=== PATIENT | female | born 1940 | race Caucasian/White ===

== ENCOUNTER → 2016-10-23 | Outpatient (CLI) | payer OTHER, MEDICARE ==
[~2016-10-23] MED LIST: ASPI-435 PO; ATEN-173 PO; CHOL20009 PO; CLX/20 PO; Levoxyl PO; MISCTAB30 PO; MULT-506 PO; OMEG100046 PO; PRLSR20 PO; SIMV10TA2 PO; TRIATAB3 PO; VITA400C15 PO
--- NOTE | 2016-10-23 16:43 | MAMMOGRAPHY REPORT ---
BILATERAL DIGITAL SCREENING MAMMOGRAM WITH CAD: 10/23/2016 CLINICAL HISTORY: Routine screening. Patient has no complaints. TECHNIQUE: Bilateral CC, MLO, repeat left MLO and right XCCL views were obtained. Current study was also evaluated with a Computer Aided Detection (CAD) system. COMPARISON: Comparison is made to exams dated: 10/20/2015 mammogram, 08/30/2014 mammogram, 08/27/2013 ma mmogram, 08/26/2012 mammogram, 05/28/2011 mammogram, and 02/03/2010 mammogram - [facility]. BREAST COMPOSITION: The tissue of both breasts is almost entirely fatty. FINDINGS: No suspicious mass, architectural distortion or cluster of microcalcifications is seen. IMPRESSION: ACR BI-RADS CATEGORY 1: NEGATIVE There is no mammographic evidence of malignancy. A 1 year screening mammogram is recommended. The pa tient will receive written notification of the results. Approximately 10% of breast cancers are not detected with mammography. A negative mammographic report should not delay biopsy if a clinically suggestive mass is present. Jeri Rivera M.D. ay/:10/23/2016 15:05:40 Rotary Filter Operator: Bernie AVINA(R)(Rich)(BD), [facility] letter sent: Normal 1/2 BI-RADS Code: ACR BI-RADS Category 1: Negative
== END | disposition home or self-care (01) ==
LOC: C.MAMM 13:16
PROVIDERS: ATTEND Family Medicine
DX: Z12.31 Encounter for screening mammogram for malignant neoplasm of breast (principal)

== ENCOUNTER 2022-04-17 08:21 | Observation (INO) ==
--- NOTE | 2022-03-08 15:12 | PAT Medication Instructions ---
Medication Instructions Date of Service March 08, 2022 Home Medications triamterene 37.5 mg-hydrochlorothiazide 25 mg tablet 0.5 tab PO QAM atorvastatin 20 mg tablet 20 mg PO HS escitalopram oxalate 10 mg tablet 10 mg PO HS levothyroxine 50 mcg tablet 50 mcg PO QAM metoprolol succinate 25 mg tablet,extended release 24 hr 25 mg PO HS DO NOT take the morning of surgery triamterene 37.5 mg-hydrochlorothiazide 25 mg tablet 0.5 tab PO QAM Take morning of surgery With a small sip of water, OTHERWISE NOTHING TO EAT OR DRINK AFTER MIDNIGHT: levothyroxine 50 mcg tablet 50 mcg PO QAM Take evening before surgery atorvastatin 20 mg tablet 20 mg PO HS escitalopram oxalate 10 mg tablet 10 mg PO HS metoprolol succinate 25 mg tablet,extended release 24 hr 25 mg PO HS Other Notes If you have any questions please call us at [phone] or [phone] or [phone] or [phone]
--- NOTE | 2022-03-12 15:25 | Anesthesiology Consultation ---
Date of Service March 12, 2022 Assessment & Plan (1) Encounter for pre-operative examination: - COVID screening: Per assessment on 03/12: No known COVID-19 positive contacts or current COVID-19 related symptoms. Travel screen negative. Patient vaccinated. At surgeon discretion if preop Covid testing being done. - Outpatient joint assessment: Pt currently scheduled for inpatient pathway. If surgeon requests review for outpatient joint pathway, patient is not recommended candidate for outpatient joint program from anesthesia standpoint. - New onset a. fib: Noted on preop EKG at PAT visit 03/12/22. Vitals stable. Patient asymptomatic. ER charge nurse made aware. Transported to ER without issue. No acute findings during ER workup. Pt advised to f/u with PCP regarding arranging cardiology evaluation. - PCP office visit (03/13/22): "Reviewed afib and meds and good prognosis.. Cardiology referral placed, and TTE.. Needs cardiology visit nick - has new onset afib and will need surgical clearance before Apr 17 preferably." Patient scheduled for preop Echo (03/15, [facility]) and cardiology evaluation (03/19, [facility])- awaiting report/note. Chart Review Chart Review: Patient seen in Pre Admission Testing Teaching & Discussion Pre-Anesthesia Teaching/Discussion Notes: Instructed NPO after midnight before surgery,except medications with 15 cc of water. Medication instructions provided according to the [facility] guidelines. History Surgery Operation Date: 04/17/22 12:45 Proposed Procedures p Right Total Hip Arthroplasty Anterior - Rafael Rodriguez, Height/Weight Height: 5 ft 5 in Weight: 86.7 kg Allergies Allergy/AdvReac Type Severity Reaction Status Date / Time prednisone AdvReac Unknown nervous/rapid Verified 03/08/22 13:13 heartrate Medications Home Medications Medication Instructions Recorded Confirmed Last Taken triamterene 37.5 0.5 tab PO QAM 11/11/19 03/08/22 12/06/19 mg-hydrochlorothiazide 25 mg tablet atorvastatin 20 mg tablet 20 mg PO HS 03/08/22 03/08/22 Unknown escitalopram oxalate 10 mg tablet 10 mg PO HS 03/08/22 03/08/22 Unknown levothyroxine 50 mcg tablet 50 mcg PO QAM 03/08/22 03/08/22 Unknown metoprolol succinate 25 mg 25 mg PO HS 03/08/22 03/08/22 Unknown tablet,extended release 24 hr apixaban 5 mg tablet (Eliquis) 5 mg PO Q12H #60 tabs 03/12/22 Unknown Past Medical History Medical History Acid reflux Chronic kidney disease Per records, pt denies Dyslipidemia Hx borderline History of seizures none since 1966 Hypertension Hypothyroidism IBS (irritable bowel syndrome) Osteoarthritis Prediabetes Borderline Rosacea hx Urge incontinence Exercise / Class Metabolic Activity III < 4 Walking/Shop/Light housework (one FS (no CP, mild SOB)) Past Surgical History Surgical History History of colonoscopy History of tubal ligation Hx of cataract extraction R/L Past Anesthesia History No Hx of Anesthesia Complications and No Family Hx of Anesthesia Complications History of PONV No Hx of PONV and Hx of Motion Sickness (Remote) Social History Smoking Status: Former smoker tobacco type: cigarettes Do You Dip or Chew Tobacco: No Smoking End Date: Quit 40 years ago Hx Alcohol Use: No Hx Substance Use: No substance use type: does not use Review of Systems Patient denies chest pain, shortness of breath, dyspnea on exertion, fever, chills, cough, wheezing, palpitations. Physical Exam Vital Signs VITALS BP 151/81 P 75 TEMP SP02 95%RA RESP 16 PHYSICAL Full cervical extension range of motion. Full TMJ range of motion. TMD 3 finger breaths Mallampati Score 3 Dentition: upper/lower full dentures Lungs: clear throughout to auscultation Cardiac: regular rate, irregular rhythm, no murmurs noted Spine: normal Carotid arteries: negative bruit Extremities: no edema Lab Results Anesthesia Preop Results Results Anesthesia Widget: WBC 8.40 K/ul (4.8-10.8) 03/12/22 Hgb 12.2 g/dl (12.0-16.0) 03/12/22 Hct 38.6 % (34.1-44.9) 03/12/22 Plt 267 K/uL (130-400) 03/12/22 Na 142 mmol/L (136-145) 03/12/22 K 3.7 mmol/L (3.5-5.1) 03/12/22 Cl 104 mmol/L (98-107) 03/12/22 CO2 29 mmol/L (21-32) 03/12/22 BUN 21 mg/dl (6-23) 03/12/22 Creat 0.81 mg/dl (0.6-1.2) 03/12/22 Glucose Level 95 mg/dl (70-99(Fasting)) 03/12/22 PT 10.5 Seconds (9.0-12.0) 03/12/22 PTT 24.2 Seconds (21.0-31.0) 03/12/22 INR 1.0 (0.9-1.1) 03/12/22 TSH 1.316 uIu/ml (0.300-4.500) 03/12/22 Urine Color Yellow 03/12/22 Urine Appearance Clear (Clear) 03/12/22 Urine pH 7.0 (4.5-7.5) 03/12/22 Urine Specific [place] 1.022 (1.000-1.030) 03/12/22 Urine Protein Negative (Negative) 03/12/22 Urine Glucose (UA) Negative (Negative) 03/12/22 Urine Ketones Trace (Negative) H 03/12/22 Urine Blood Negative (Negative) 03/12/22 Urine Nitrite Negative (Negative) 03/12/22 Urine Bilirubin Negative (Negative) 03/12/22 Urine Urobilinogen Negative (Negative) 03/12/22 Urine Leukocyte Esterase 1+ (Negative) H 03/12/22 Urine WBC (Auto) >30 /hpf (0-5) H 03/12/22 Urine RBC (Auto) 0-4 /hpf (0-4) 03/12/22 Urine Hyaline Casts (Auto) 1-5 /lpf (0-5) 03/12/22 Urine Epithelial Cells (Auto) 20-30 /lpf (0-5) H 03/12/22 Urine Bacteria (Auto) 1+ (Negative) H 03/12/22 Blood Type O Positive 03/12/22 Antibody Screen NEGATIVE 03/12/22 Testing Laboratory Results Surgeon's office made aware of abnormal UA* Electrocardiogram Date: 03/12/22 A. fib at 76bpm. Nonspecific STA. *Poor data quality. Chest X-Ray Date: 03/12/22 FINDINGS: Cardiac silhouette is moderately enlarged. Atherosclerosis of the aorta. No pneumothorax, large pleural effusion or lobar airspace consolidation. Degenerative changes of the shoulders and spine. IMPRESSION: Cardiomegaly without acute process. COVID-19 Risk Screen Screening Information COVID-19 Screen Date: 03/15/22 Exposure 21 Days Family/Household +COVID Last 21 Days: No Exposure 10 Days Any COVID Exposure Last 10 Days: No Symptoms Last 10 Days Experienced COVID Sx Last 10 Days: No + COVID 0-90 Days COVID + in Last 0-90 Days: No
--- NOTE | 2022-04-17 06:23 | History & Physical Report ---
Date of Service April 17, 2022 Assessment & Plan (1) Osteoarthritis of right hip: We will proceed with a right total hip arthroplasty. Postoperatively she will be started on aspirin for DVT prophylaxis and kept overnight in the hospital for postoperative medical management. She plans to use energy physical therapy upon discharge. History of Present Illness Chief Complaint: Osteoarthritis of the right hip. Primary Care Provider: Delia nAn MD Halie is a pleasant 81-year-old female who has been dealing with chronic worsening right hip and groin pain. X-rays and clinical examination have been diagnostic for advanced osteoarthritis of the right hip. After failing extensive conservative treatment, she has elected to proceed with a right total hip arthroplasty. . Allergies Allergy/AdvReac Type Severity Reaction Status Date / Time prednisone AdvReac Unknown nervous/rapid Verified 03/08/22 13:13 heartrate Home Medications Medication Instructions Recorded Confirmed Type triamterene 37.5 0.5 tab PO QAM 11/11/19 03/08/22 History mg-hydrochlorothiazide 25 mg tablet atorvastatin 20 mg tablet 20 mg PO HS 03/08/22 03/08/22 History escitalopram oxalate 10 mg tablet 10 mg PO HS 03/08/22 03/08/22 History levothyroxine 50 mcg tablet 50 mcg PO QAM 03/08/22 03/08/22 History metoprolol succinate 25 mg 25 mg PO HS 03/08/22 03/08/22 History tablet,extended release 24 hr apixaban 5 mg tablet (Eliquis) 5 mg PO Q12H #60 tabs 03/12/22 Rx Past Med/Surg History Medical History Acid reflux Chronic kidney disease Per records, pt denies Dyslipidemia Hx borderline History of seizures none since 1966 Hypertension Hypothyroidism IBS (irritable bowel syndrome) Osteoarthritis Prediabetes Borderline Rosacea hx Urge incontinence Surgical History History of colonoscopy History of tubal ligation Hx of cataract extraction R/L Social History Smoking Status: Former smoker Second Hand Exposure: Yes (at work); Hx Alcohol Use: No Hx Substance Use: No Preferred Language: Thai Communication Ability: Effective Visual Impairment: Limited Hearing Ability: Normal Hydraulic Boom Operator Required: No Beliefs That Will Affect Care: None marital status: Current Living Situation: Alone current occupational status: retired Feels Safe at Home: Yes Assistive Devices: Denture - Upper, Denture - Lower and Glasses Review of Systems All systems reviewed & are unremarkable except as noted in HPI & below. Physical Exam On physical examination the right hip, she has decreased range of motion. She has pain in her groin with forced internal and external rotation.. Constitutional WD/WN, vitals as above Eyes PERRL, conjunctivae normal, anicteric sclerae ENMT external ear and nose normal, oropharynx normal Neck trachea midline, no thyromegaly Respiratory normal respiratory effort, lungs clear to auscultation Cardiovascular RRR, no murmur, no edema Gastrointestinal (Abdomen) normal bowel sounds, soft, nontender, no hepatosplenomegaly Skin no rashes, warm and dry Psychiatric A+Ox3, euthymic affect Results & Data Results & Data Laboratory Results . Diagnostic Findings X-rays of the right hip show advanced osteoarthritis with joint space narrowing, osteophyte formation, and [id number] articulation.. PG Care Time/CCT Total # of Minutes Spent Total Time Spent with Patient: Total time spent is greater than 50% in coordination of care (as documented) at patient's floor/unit and/or counseling patient: Coding Level of Care Code None Diagnoses Osteoarthritis of right hip M16.11
[~2022-04-17 08:21] MED LIST changes: +ACETAMINOPHEN 500 MG TAB PO SCH; -ASPI-435 PO; -ATEN-173 PO; +BUPIVACAINE 0.5 % 5 MG/1 ML MPF 30ML VIAL ONE; -CHOL20009 PO; -CLX/20 PO; +FAMOTIDINE 20 MG TAB PO SCH; +GABAPENTIN 300 MG CAP PO SCH; +LR 500ML BOLUS, THEN 15ML/HR IV SCH; +LR 60ML/HR IV SCH; -Levoxyl PO; -MISCTAB30 PO; -MULT-506 PO; -OMEG100046 PO; +ORTHO JOINT MIX INFIL SCH; -PRLSR20 PO; -SIMV10TA2 PO; +TRANEXAMIC ACID 1,000 MG **IV Intra-op IV SCH; -TRIATAB3 PO; -VITA400C15 PO; +ceFAZolin 2000MG 2,000 MG/15 ML SYR IV SCH; +dexAMETHasone 4 MG TAB PO SCH
[2022-04-17] MEDS: TRANEXAMIC ACID 1,000 MG **IV Pre-op IV SCH ×2 (09:36→10:52)
[2022-04-17] MEDS ORDERED: PROPOFOL IV EMULSION 10 MG/ML 20 ML VIAL IV ONE (10:24)
[2022-04-17] MEDS ORDERED: LIDOCAINE 2% MPF LOCAL 5 ML VIAL INFIL ONE (10:24)
[2022-04-17] MEDS ORDERED: MIDAZOLAM HCL 1 MG/ML 2ML VIAL ONE (10:24)
[2022-04-17] MEDS ORDERED: ATROPINE SULFATE 0.1 MG/ML 10ML SYR IV PRN (10:47)
[2022-04-17] MEDS ORDERED: fentaNYL citrate 100 MCG/2 ML VIAL IV PRN (10:47)
[2022-04-17] MEDS ORDERED: ONDANSETRON INJ 2 MG/ML 2 ML VIAL IV PRN (10:47)
[2022-04-17] MEDS ORDERED: ePHEDrine sulfate 50 MG/ML AMP IV PRN (10:47)
[2022-04-17] MEDS ORDERED: HYDROmorphone INJ 2 MG/ML SYR/VIAL IV PRN (10:47)
[2022-04-17] MEDS ORDERED: ORTHO JOINT ANESTHETIC ONE (10:51)
[2022-04-17] MEDS ORDERED: fentaNYL citrate 100 MCG/2 ML VIAL ONE (11:05)
[2022-04-17] MEDS ORDERED: ROCURONIUM BROMIDE 10 MG/ML 5 ML VIAL IV ONE (11:05)
[2022-04-17] MEDS ORDERED: GLYCOPYRROLATE 0.2 MG/ML VIAL ONE (11:35)
[2022-04-17] MEDS ORDERED: NEOSTIGMINE METHYLSULFATE 1 MG/ML 10ML VIAL ONE (11:35)
[2022-04-17] MEDS ORDERED: DEXAMETHASONE SOD INJ 4 MG/ML VIAL ONE (11:35)
[2022-04-17] MEDS ORDERED: ONDANSETRON INJ 2 MG/ML 2 ML VIAL ONE (11:35)
[2022-04-17] MEDS ORDERED: PHENYLEPHRINE HCL 10 MG/ML VIAL ONE (12:28)
--- NOTE | 2022-04-17 12:31 | Operative Report ---
PG Post Operative Report Pre & Post Diagnosis Operation Date: 04/17/22 10:55 Pre-Op Diagnosis: Right Hip Degenerative Joint Disease Post-Op Diagnosis: Right Hip Degenerative Joint Disease I identified the patient and participated in the time-out.: Yes Procedure Operation Date: 04/17/22 10:55 Actual Procedures p Right Total Hip Arthroplasty Anterior(Right) - Rafael Rodriguez DO Surgeon Rafael Rodriguez DO Production Recorder Kamlesh Delgado PA-C Estimated Blood Loss 250 Findings Consistent with Post-Op Diagnosis Specimens Right femoral head Description of Procedure Implants used I used a ZimmerBiomet total hip arthroplasty system with a size 3 standard offset Avenir Complete stem, a 48 mm G7 cup with a 25mm screw, an E1 polye thylene liner, a 32 mm ceramic head with a +3.5 neck. Halie arrived at the hospital for the above procedure. She was seen in the preoperative holding area and the operative extremity was identified and signed. She was given a spinal anesthetic, a preoperative antibiotic, and TXA. She was then taken back to the operating room and laid on the table in the supine position. She was given basic sedation. The operative leg was secured to a Puristst leg positioner. The hip was then prepped and draped in sterile fashion. A timeout was done and the patient and the operative extremity was properly identified. An anterior approach was used. Dissection was taken down through the fascia and the tensor muscle belly was retracted laterally and the rectus was retracted medially. The circumflex vessels were identified and ligated. The capsule was then incised and tagged for later repair. The femoral neck was then cut and the femoral head was removed. The acetabulum was exposed. Time was spent doing a complete circumferential labral release. Sequential reaming of the acetabulum up to a size 47 reamer was done. Final reamings were done under fluoroscopy to ensure appropriate version. A Biomet 48 mm G7 cup was then impacted into place. A single 25 mm screw was placed. The E1 polyethylene liner was then snapped into place. Surrounding soft tissues were then injected with 100 cc of an orthopedic pain control cocktail. The proximal femur was then exposed. Sequential broaching up to a size 3 broach was done. Off that broach a size 32 head with a +3.5 neck was trialed. The hip was reduced and fluoroscopic images showed anatomic alignment of the implants in acceptable length. The broach was removed. The final size 3 standard offset Avenir Complete stem was then impacted into place. A ceramic 32 mm head with a +3.5 neck was then impacted onto the stem and the hip was reduced. Final fluoroscopic images showed anatomic alignment of the hip. The capsule was then closed with #1 Vicryl suture. A dilute betadyne lavage was then done for 3 minutes. The joint was then irrigated with normal saline solution. The fascia was closed with #1 PDS suture. Skin was closed with 2-0 Vicryl, brie, and a Silverlon dressing. She was then transferred to a hospital bed and taken to the post anesthesia care unit in stable condition. She tolerated the procedure well. Kamlesh Delgado PA-C, was present for the entire procedure. He was critical for patient positioning, prepping, draping, retraction exposure, wound closure and application of sterile dressing. I attest to the content of the Intraoperative Record and any orders documented therein. Any exceptions are noted below.
--- NOTE | 2022-04-17 14:02 | XRay Report ---
AP PELVIS, CROSSTABLE LATERAL RIGHT HIP History: Right total hip arthroplasty. Degenerative arthritis. Postop. FINDINGS: The patient is status post a right total hip arthroplasty. The hardware is intact. No fract ure or dislocation. Skin rbie are in place. IMPRESSION: Right total hip arthroplasty. No evidence for hardware complication ACT 112: Negative or not required by law. Electronically signed by: Trae Marie M.D. 04/17/2022 2:01 PM
--- NOTE | 2022-04-17 14:34 | Fluoroscopy Report ---
FL hip RT 1V CLINICAL HISTORY: RT ANTERIORright hip arthroplasty COMPARISON STUDY: Pelvis and hip radiographs of same day FLUOROSCOPY TIME: 16.4 seconds FLUOROSCOPY IMAGES: 1 EXPOSURE DOSE: 1.97 mGy FINDINGS: Satisfactory alignment of the right knee total joint arthroplasty. No acute fracture or une xpected opaque foreign body. Expected postoperative soft tissue swelling with deep tissue air. IMPRESSION: Fluoroscopic assistance as above. ACT 112: Negative or not required by law. Electronically signed by: Chinedu Brown M.D. 04/17/2022 2:33 PM
--- NOTE | 2022-04-17 14:49 | Anesthesiology Progress Note ---
Date of Service April 17, 2022 Anesthesia Post Procedure Vital Signs Vital Signs: Temp Pulse Pulse Resp BP Pulse Ox O2 Del Method 04/17/22 14:05 67 13 146/81 H 100 Nasal Cannula 04/17/22 13:50 36.9 C 67 13 123/68 96 Nasal Cannula 04/17/22 13:40 67 12 114/67 95 Nasal Cannula 04/17/22 13:30 66 19 122/72 100 Nasal Cannula 04/17/22 13:20 74 18 128/89 88 L Room Air 04/17/22 13:15 65 14 153/86 H 98 Oxymask 04/17/22 13:10 71 18 153/84 H 98 Oxymask 04/17/22 13:00 37.4 C 76 18 169/96 H 98 Oxymask 04/17/22 09:10 36.9 C 85 18 170/75 H 98 Room Air O2 Flow Rate 04/17/22 14:05 2 04/17/22 13:50 2 04/17/22 13:40 2 04/17/22 13:30 2 04/17/22 13:20 04/17/22 13:15 5 04/17/22 13:10 5 04/17/22 13:00 5 04/17/22 09:10 Pain Intensity Right Hip: Pain Intensity: 4 Transfer of Care Handoff Completed per policy Notes Mental Status: alert / awake / arousable and participated in evaluation Patient Amnestic to Procedure: Yes Nausea / Vomiting: adequately controlled Pain: adequately controlled Airway Patency, RR, SpO2: stable & adequate BP & HR: stable & adequate Hydration State: stable & adequate Anesthetic Complications: no major complications apparent and Pt Satisfied with anesthetic care
[2022-04-17] MEDS ORDERED: HYDROmorphone INJ 0.5 MG/0.5 ML SYR IV PRN (14:53)
[2022-04-17] MEDS ORDERED: MAGNESIUM HYDROXIDE SUSP 30 ML UDC PO PRN (14:53)
[2022-04-17] MEDS ORDERED: NALOXONE HCL 0.4 MG/1 ML VIAL/CARP IV PRN (14:53)
[2022-04-17] MEDS ORDERED: METOCLOPRAMIDE HCL INJ 5 MG/ML 2 ML VIAL IV PRN (14:53)
[2022-04-17] MEDS ORDERED: SODIUM CHLORIDE 0.9% 1000ML 1,000 ML IV SCH (14:53)
[2022-04-17] MEDS ORDERED: bisacodyL 10 MG SUPP PR PRN (14:53)
[2022-04-17] MEDS: oxyCODONE HCL IR 5 MG TAB (IMMEDIATE RELEASE) PO PRN ×2 (15:31→21:18)
[2022-04-17] MEDS: KETOROLAC TROMETHAMINE 15 MG/ML VIAL IV SCH ×2 (15:31→21:19)
[2022-04-17] MEDS: ceFAZolin 2000MG 2,000 MG/15 ML SYR IV SCH (17:39)
[2022-04-17] MEDS: DOCUSATE SODIUM 100 MG CAP PO SCH (20:22)
[2022-04-17] MEDS ORDERED: SENNA 8.6 MG TAB PO SCH (21:00)
[2022-04-17] MEDS ORDERED: METOPROLOL SUCC 25MG EXT REL TAB PO SCH (21:00)
[2022-04-17] MEDS ORDERED: ATORVASTATIN 20 MG TAB PO SCH (21:00)
[2022-04-17] MEDS ORDERED: ESCITALOPRAM OXALATE 10 MG TAB PO SCH (21:00)
[2022-04-18] MEDS: ceFAZolin 2000MG 2,000 MG/15 ML SYR IV SCH (00:39)
[2022-04-18] MEDS: oxyCODONE HCL IR 5 MG TAB (IMMEDIATE RELEASE) PO PRN (03:58)
[2022-04-18] MEDS: KETOROLAC TROMETHAMINE 15 MG/ML VIAL IV SCH ×2 (03:58→10:23)
[2022-04-18] MEDS ORDERED: LEVOTHYROXINE SODIUM 50 MCG TABLET PO SCH (06:30)
--- NOTE | 2022-04-18 06:49 | Orthopedic Progress Note ---
Date of Service April 18, 2022 Assessment & Plan (1) Status post right hip replacement: Overall she is doing very well. She is not having much pain in the right hip. She will be seen by physical therapy today for ambulation and range of motion exercises. She is on Eliquis for DVT prophylaxis. She can be discharged home later today. She will follow-up with orthopedics in 2 weeks. Subjective Halie was seen and examined at bedside this morning. Overall she is doing very well. She is not having much pain in her right hip. She has been up and ambulating to the bathroom. She has no complaints.. Review of Systems All systems reviewed & are unremarkable except as noted in HPI & below. Physical Exam On physical examination of the right hip, the dressing is clean and dry. She has active dorsiflexion plantarflexion of her right ankle.. Results & Data Results & Data Laboratory Results . Diagnostic Findings Postoperative x-rays of the right hip show the prosthesis to be in anatomic alignment without any evidence of fracture, desiccation, or loosening.. PG Care Time/CCT Total # of Minutes Spent Total Time Spent with Patient: Total time spent is greater than 50% in coordination of care (as documented) at patient's floor/unit and/or counseling patient: Coding Level of Care Code 92810 Post Operative Follow-Up Diagnoses Status post right hip replacement Z96.641
--- NOTE | 2022-04-18 06:51 | Discharge Summary ---
Date of Service April 18, 2022 Admission HPI (Per Admitting) Halie is a pleasant 81-year-old female who has been dealing with chronic worsening right hip and groin pain. X-rays and clinical examination have been diagnostic for advanced osteoarthritis of the right hip. After failing extensive conservative treatment, she has elected to proceed with a right total hip arthroplasty. . Admission Exam (Per Admitting) On physical examination the right hip, she has decreased range of motion. She has pain in her groin with forced internal and external rotation.. Principal Diagnosis Same as "Discharge Diagnosis" noted below under Discharge Instructions. Discharge Exam On physical examination of the right hip, the dressing is clean and dry. She has active dorsiflexion plantarflexion of her right ankle.. Discharge Data Procedures Performed Operation Date: 04/17/22 10:55 Actual Procedures p Right Total Hip Arthroplasty Anterior(Right) - Rafael Rodriguez DO Ordered Studies 04/17/22 10:55 FL hip RT 1V Routine Hospital Course (1) Status post right hip replacement: On April 17, 2022 Halie arrived at [facility] and underwent a right hip replacement without complication. She had a general anesthetic. Postoperatively she was started on Eliquis for DVT prophylaxis and transferred to the general orthopedic floors. Her hospital course was uneventful. On postop day #1, her vital signs were stable and her pain was well controlled. She was able to participate well with physical therapy doing ambulation and range of motion exercises. She was then discharged home. She will follow-up with orthopedics in 2 weeks. PG Care Time/CCT Total # of Minutes Spent Total Time Spent with Patient: Total time spent is greater than 50% in coordination of care (as documented) at patient's floor/unit and/or counseling patient: Discharge Plan Discharge Items Patient Disposition: Home - Home Health Services Reason For Visit: POST SURGICAL CARE Discharge Diagnosis: Right hip replacement Activity: As commented below Non-emergency contact: Surgeon Call non-emergency contact if: your wound has increased redness and your wound has increased drainage Follow-up/Referrals: Delia Ann MD [Primary Care Provider] - Diet: Regular Addtl Attending Provider Instructions: Activity and Therapy Recommendations: * If you are using [facility] then therapy will be provided at your home until they feel you have accomplished all of your goals. * If you are using [facility] then Physical Therapy will be provided until they feel you are ready to start Outpatient Physical Therapy. * If you are not using home therapy then Outpatient Physical Therapy should start about 3-5 days from your day of surgery. Therapy will last about 6-10 weeks * You were shown a series of exercises in the hospital. Do these exercises three times each day including the exercises you were shown in physical therapy. * Get up and walk several times each day.~ For the first four weeks, try not to stand or walk for more than one hour at a time. If you do stand or walk for more than one hour, you will not hurt anything, but your leg will likely swell.~~ * As you feel comfortable, you may change from the walker or crutches to a cane and~then to independent walking. Medications: * Narcotic You will likely be sent home from the hospital with a prescription for the narcotic pain medication that worked best throughout your stay. * Continue taking Eliquis as prescribed. * Other medications may be prescribed for specific circumstances. If you have any questions, please call the office at . * Resume previous home medications unless otherwise instructed TEDs/Elastic Stockings: The white elastic stockings help limit swelling and prevent blood clots from forming in your legs. The more you wear them, the more they work. Wear them for six weeks. Dressing Care: Leave the Silverlon dressing in place for 7 days. After 7 days you may remove the dressing. If the incision is not draining then you may leave the brie open to air. If there is a little bit of drainage or if the brie are getting stuck on your clothing then cover the incision with a dry dressing. The brie will be removed at your 2 week follow-up appointment. Showering: You may shower with the Silverlon dressing in place. Do not let the shower spray hit the dressing directly. Pat the Silverlon dressing dry. If the dressing becomes wet underneath, then simply remove the dressing. Keep the incision dry until you are 7 days out from the day of surgery. After 7 days you may remove the Silverlon dressing and shower with the brie exposed. Let soapy water run over the brie and pat them dry. Do not scrub or soak the incision. Things To Watch For: * Drainage from the incision site that occurs more than one week after your surgery. * Increased redness at the incision site. * Fever above 102 degrees Fahrenheit. * Unusual chest pain or shortness of breath. * Call [facility] at with any of the above problems Follow-Up Visit: Follow-up with Dr. Rodriguez's PA (Rafael Manriquez) 2-3 weeks after your day of surgery. He will remove your brie and answer any questions. If you have any additional questions or concerns, Dr Rodriguez is usually in the office at the same time and will be available An appointment was probably scheduled when you signed-up for surgery in the office. If you have any questions call Office Instructions: More detailed instructions as well as Frequently Asked Questions were provided in a folder by our office when you signed-up for surgery. Please review these instructions when you get home. If you have any further questions or concerns, please feel free to call the office at [phone] Pending Studies at Discharge: No Stand-Alone Forms: My [facility] Medications and DC Order Prescriptions: New oxycodone-acetaminophen 5-325 mg tablet 1 tab PO Q6H PRN (Reason: pain) Qty: 30 0RF Continued triamterene-hydrochlorothiazid 37.5-25 mg Tablet 0.5 tab PO QAM atorvastatin 20 mg tablet 20 mg PO HS levothyroxine 50 mcg tablet 50 mcg PO QAM metoprolol succinate 25 mg tablet extended release 24 hr 25 mg PO HS escitalopram oxalate 10 mg tablet 10 mg PO HS Eliquis 5 mg tablet 5 mg PO Q12H Qty: 60 0RF Admission Data Admit Date/Time: 04/17/22 10:56 Attending Provider: Rafael Rodriguez Admit Provider: Rafael Rodriguez Primary Care Provider: Delia Ann
[2022-04-18] MEDS ORDERED: dexAMETHasone 4 MG TAB PO SCH (08:00)
[2022-04-18] MEDS: DOCUSATE SODIUM 100 MG CAP PO SCH (08:28)
[2022-04-18] MEDS ORDERED: TRIAMTERENE/HCTZ 37.5/25MG TAB PO SCH (09:00)
[2022-04-18] MEDS ORDERED: MULTIVITAMIN TAB PO SCH (09:00)
[2022-04-18] MEDS ORDERED: APIXABAN 5 MG TABLET PO SCH (09:00)
== END 2022-04-18 13:46 | disposition home health service (06) ==
LOC: PACUINP 08:21 → ASU 08:21 → 3W 15:06

== ENCOUNTER 2022-08-17 07:57 | Observation (INO) ==
--- NOTE | 2022-07-18 10:06 | PAT Medication Instructions ---
Medication Instructions Date of Service July 18, 2022 Home Medications Medication Instructions Recorded apixaban 5 mg tablet (Eliquis) 5 mg PO Q12H #60 tabs 03/12/22 triamterene 37.5 mg-hydrochlorothiazide 25 mg tablet 0.5 tab PO QAM atorvastatin 20 mg tablet 20 mg PO HS escitalopram oxalate 10 mg tablet 10 mg PO HS levothyroxine 50 mcg tablet 50 mcg PO QAM metoprolol succinate 25 mg tablet,extended release 24 hr 25 mg PO HS apixaban 5 mg tablet (Eliquis) 5 mg PO Q12H ASK your prescriber and surgeon apixaban 5 mg tablet (Eliquis) 5 mg PO Q12H (in order to get spinal anesthesia- will need to hold Eliquis/apixaban at least 72 hours prior to surgery) DO NOT take the morning of surgery triamterene 37.5 mg-hydrochlorothiazide 25 mg tablet 0.5 tab PO QAM Take morning of surgery With a small sip of water, OTHERWISE NOTHING TO EAT OR DRINK AFTER MIDNIGHT: levothyroxine 50 mcg tablet 50 mcg PO QAM Take evening before surgery atorvastatin 20 mg tablet 20 mg PO HS escitalopram oxalate 10 mg tablet 10 mg PO HS metoprolol succinate 25 mg tablet,extended release 24 hr 25 mg PO HS Other Notes If you have any questions please call us at [phone] or [phone] or [phone] or [phone]
--- NOTE | 2022-07-24 14:33 | Anesthesiology Consultation ---
Date of Service July 24, 2022 Assessment & Plan (1) Encounter for pre-operative examination: - COVID screening: Per assessment on 07/24: No known COVID-19 positive contacts or current COVID-19 related symptoms. Travel screen negative. Patient vaccinated. At surgeon discretion if preop Covid testing being done. -Cardiology office visit (03/23/22): "Newly observed atrial fibrillation, March 12, 2022.. controlled ventricular response rate due to chronic use of metoprolol. Patient asymptomatic and unaware of arrhythmias. No signs of tachy or starla arrhythmias. No symptomatic indications for need to return to sinus rhythm at this time. Appropriately anticoagulated with Eliquis with chads Vasc 2 score of 4. Echocardiogram reflects normal LV systolic function..No cardiac contraindications to surgery as planned. Will need to hold Eliquis 3 days prior to procedurewith resumption depending on anesthesia/surgery course" - S/P Right GILA, anterior (04/17/22): Multiple attempts at multiple levels for SAB unsuccessful > GA- Grade view 1, MAC#3, ETT 7.0 at [facility] - Outpatient joint assessment: Pt currently scheduled for inpatient pathway. If surgeon requests review for outpatient joint pathway, patient is not recommended candidate for outpatient joint program from anesthesia standpoint. - Patient scheduled to see cardiology prior to surgery. Awaiting upcoming cardiology office visit note (NITIN Hendrickson, appt 07/31). Patient otherwise acceptable risk for surgery. Chart Review Chart Review: Patient seen in Pre Admission Testing Teaching & Discussion Pre-Anesthesia Teaching/Discussion Notes: Instructed NPO after midnight before surgery,except medications with 15 cc of water. Medication instructions provided according to the PAT guidelines. History Surgery Operation Date: 08/17/22 10:30 Proposed Procedures p Left Total Knee Arthroplasty - Rafael Rodriguez, Height/Weight Height: 5 ft 5 in Weight: 83 kg Allergies Allergy/AdvReac Type Severity Reaction Status Date / Time prednisone AdvReac Unknown Nervous, Verified 07/23/22 11:48 rapid heart rate Medications Home Medications Medication Instructions Recorded Confirmed Last Taken triamterene 37.5 0.5 tab PO QAM 11/11/19 07/17/22 04/15/22 12:00 mg-hydrochlorothiazide 25 mg tablet atorvastatin 20 mg tablet 20 mg PO HS 03/08/22 07/17/22 04/14/22 22:00 escitalopram oxalate 10 mg tablet 10 mg PO HS 03/08/22 07/17/22 04/14/22 22:00 levothyroxine 50 mcg tablet 50 mcg PO QAM 03/08/22 07/17/22 04/15/22 12:00 metoprolol succinate 25 mg 25 mg PO HS 03/08/22 07/17/22 04/14/22 22:00 tablet,extended release 24 hr apixaban 5 mg tablet (Eliquis) 5 mg PO Q12H #60 tabs 03/12/22 07/17/22 04/13/22 12:00 Past Medical History Medical History Acid reflux Atrial fibrillation Dx 02/2022 Follows with [facility] [place] [facility] Chronic kidney disease Per records, pt denies Dyslipidemia Hx borderline History of cellulitis Right hip incision s/p right hip arthroplasty (April 2022) > resolved s/p antibiotics History of seizures none since 1966 Hypertension Hypothyroidism IBS (irritable bowel syndrome) Osteoarthritis Prediabetes Borderline Rosacea Hx Urge incontinence Exercise / Class Metabolic Activity III < 4 Walking/Shop/Light housework Past Family History Family History Other No family history of adverse response to anesthesia Past Surgical History Surgical History History of anesthesia reaction Right GILA, anterior (04/17/22): Multiple attempts at multiple levels for SAB unsuccessful > GA- Grade view 1, MAC#3, ETT 7.0 at [facility] History of colonoscopy History of tubal ligation Hx of cataract extraction R/L S/P total right hip arthroplasty Past Anesthesia History No Family Hx of Anesthesia Complications and Other (Right GILA, anterior (04/17/22): Multiple attempts at multiple levels for SAB unsuccessful > GA- Grade view 1, MAC#3, ETT 7.0 at [facility]) History of PONV No Hx of PONV and No Hx of Motion Sickness Social History Smoking Status: Former smoker tobacco type: cigarettes Do You Dip or Chew Tobacco: No Smoking End Date: Quit 40 years ago Hx Alcohol Use: No Hx Substance Use: No substance use type: does not use Review of Systems Patient denies chest pain, shortness of breath, fever, chills, cough, wheezing, palpitations. Physical Exam Vital Signs VITALS BP 125/70 P 73 TEMP 98.3 SP02 96%RA RESP 16 PHYSICAL Full cervical extension range of motion. Full TMJ range of motion. TMD 3 finger breaths Mallampati Score 1 Dentition: upper/lower full dentures Lungs: clear throughout to auscultation Cardiac: regular rate, irregular rhythm, no murmurs noted Spine: normal Carotid arteries: negative bruit Extremities: no LE edema Lab Results Anesthesia Preop Results Results Anesthesia Widget: WBC 5.78 K/ul (4.8-10.8) 07/24/22 Hgb 11.3 g/dl (12.0-16.0) L 07/24/22 Hct 36.4 % (37.0-47.0) L 07/24/22 Plt 281 K/uL (130-400) 07/24/22 Na 140 mmol/L (136-145) 07/24/22 K 3.8 mmol/L (3.5-5.1) 07/24/22 Cl 103 mmol/L (98-107) 07/24/22 CO2 30 mmol/L (21-32) 07/24/22 BUN 26 mg/dl (6-23) H 07/24/22 Creat 0.78 mg/dl (0.6-1.2) 07/24/22 Glucose Level 103 mg/dl (70-99(Fasting)) H 07/24/22 PT 11.2 Seconds (9.0-12.0) 07/24/22 PTT 25.6 Seconds (21.0-31.0) 07/24/22 INR 1.0 (0.9-1.1) 07/24/22 Blood Type O Positive 07/24/22 Antibody Screen NEGATIVE 07/24/22 Testing Electrocardiogram Date: 03/23/22 A. fib at 70bpm. Low voltage QRS, consider pulmonary disease, pericardial effusion or normal variant. NS ST/TWA. Chest X-Ray Date: 03/12/22 FINDINGS: Cardiac silhouette is moderately enlarged. Atherosclerosis of the aorta. No pneumothorax, large pleural effusion or lobar airspace consolidation. Degenerative changes of the shoulders and spine. IMPRESSION: Cardiomegaly without acute process. Echocardiogram Date: 03/15/22 LVEF 55-59%. Mildly increased cLV wall thickness. Mild AV calcification. Mild MV annulus dilation. Moderate MR. No RWMA. COVID-19 Risk Screen Screening Information COVID-19 Screen Date: 07/24/22 Exposure 21 Days Family/Household +COVID Last 21 Days: No Exposure 10 Days Any COVID Exposure Last 10 Days: No Symptoms Last 10 Days Experienced COVID Sx Last 10 Days: No + COVID 0-90 Days COVID + in Last 0-90 Days: No
[~2022-08-17 07:57] MED LIST changes: -BUPIVACAINE 0.5 % 5 MG/1 ML MPF 30ML VIAL ONE; +BUPIVACAINE 0.5 % 5 MG/1 ML PF 10ML VIAL ONE; +Ketorolac (*for OR use only*) 30 MG, dexAMETHasone 4 MG, KETAMINE HCL (**OR use only) 1... INFIL SCH; -ORTHO JOINT MIX INFIL SCH; +ROPIVACAINE 0.5% 5 MG/ML 30 ML VIAL ONE; +TRANEXAMIC ACID 1,000 MG **IV Pre-op IV SCH
[2022-08-17] MEDS ORDERED: PROPOFOL IV EMULSION 10 MG/ML 20 ML VIAL IV ONE (08:13)
[2022-08-17] MEDS ORDERED: fentaNYL citrate PF 100 MCG/2 ML VIAL ONE ×2 (08:29→10:43)
[2022-08-17] MEDS ORDERED: MIDAZOLAM HCL 1 MG/ML 2ML VIAL ONE (08:29)
--- NOTE | 2022-08-17 09:25 | History & Physical Bridge Note ---
Date of Service August 17, 2022 History & Physical Bridge Note I have examined the patient, reviewed the History & Physical and in the interval since the performance of the History & Physical I have noted the following changes of clinical significance: no changes noted
[2022-08-17] MEDS ORDERED: LIDOCAINE 2% 2 ML VIAL/AMP(20MG/ML) INFIL ONE (09:34)
[2022-08-17] MEDS ORDERED: ONDANSETRON INJ 2 MG/ML 2 ML VIAL IV PRN ×2 (09:52→13:41)
[2022-08-17] MEDS ORDERED: ePHEDrine sulfate 50 MG/ML AMP IV PRN (09:52)
[2022-08-17] MEDS ORDERED: ORTHO JOINT ANESTHETIC ONE (09:52)
[2022-08-17] MEDS ORDERED: fentaNYL citrate PF 100 MCG/2 ML VIAL IV PRN (09:52)
[2022-08-17] MEDS ORDERED: ATROPINE SULFATE 0.1 MG/ML 10ML SYR IV PRN (09:52)
[2022-08-17] MEDS ORDERED: DEXAMETHASONE SOD INJ 4 MG/ML VIAL ONE (09:54)
[2022-08-17] MEDS ORDERED: ONDANSETRON INJ 2 MG/ML 2 ML VIAL ONE (09:54)
--- NOTE | 2022-08-17 11:37 | Operative Report ---
PG Post Operative Report Pre & Post Diagnosis Operation Date: 08/17/22 10:00 Pre-Op Diagnosis: DJD Left Knee Post-Op Diagnosis: DJD Left Knee I identified the patient and participated in the time-out.: Yes Procedure Operation Date: 08/17/22 10:00 Actual Procedures p Left Total Knee Arthroplasty(Left) - Rafael Rodriguez DO Surgeon Rafael Rodriguez DO House Player Rafael Manriquez PA-C Estimated Blood Loss 30 Findings Consistent with Post-Op Diagnosis Specimens Left femoral tibial bone Description of Procedure Implants used: I used a Jenifer Persona total knee arthroplasty system with a size 6 standard PS femur, D tibia with a 30 mm stem extension, 31 oval patella, and a size 12 CPS polyethylene bearing. All components were cemented in place with Biomet cement. Halie arrived [facility] for the above procedure. She was seen in the preoperative holding area and the operative extremity was identified and signed. She was given a preoperative antibiotic, TXA, a spinal anesthetic and an adductor nerve block. She was taken back to the operating room and laid on the table in supine position. She was given basic sedation. The operative knee was then prepped and draped in sterile fashion. A timeout was done, and the patient and the operative extremity was properly identified. A midline incision was made directly over the patella. Dissection was taken down to the extensor mechanism. A midvastus arthrotomy was used. The medial retinaculum was released and the fat pad was mostly excised. The knee was flexed and the ACL, PCL, and meniscus were removed. A drill was sent down the center of the femoral canal followed by an intramedullary yamini. Off that yamini a distal femoral cutting block was placed. 9 mm was resected off the distal femur at 5 of valgus. A posterior referencing AP sizing guide was then placed on the distal femur. The femur measured to be a size 6. 2 drill holes were placed in 3 of external rotation. A 4-in-1 cutting block was then impacted into place. Anterior, posterior, and chamfer cuts were then made. The proximal tibia was then exposed. An external tibial alignment guide was placed. A tibial cut guide was then anchored in place and the proximal tibia was then resected. The posterior aspect of the knee was then opened up and any additional meniscus fragments and osteophytes were removed. The tibia measured to be a size D. The tibial plate was then placed in the appropriate rotation and the tibia was drilled and punched. Trial components were then placed. I used a size 12 CPS polyethylene insert. The knee was brought through a full range of motion and felt to be stable. The peg holes for the femoral component were then drilled. The patella was then everted and 9 mm was resected off the posterior aspect of the patella. The patella measured to be a size 31 oval. 3 peg holes were then drilled. A trial patella was placed. The knee was once again brought through a full range of motion and felt to be stable. Trial components were then removed. The surrounding soft tissues were injected with 100 cc of an orthopedic pain control cocktail. All components were then cemented into place with Biomet cement. The final polyethylene insert was then snapped into place. Once cement was dry the tourniquet was deflated. Hemostas is was obtained. A dilute betadyne lavage was then done for 3 minutes. The joint was then irrigated with normal saline solution. The midvastus arthrotomy was then closed with #1 Vicryl suture. The skin was closed with 2-0 Vicryl, 3- 0V lock suture, and brie. A soft compressive dressing was placed. She was then transferred to a hospital bed and taken to the postanesthesia care unit in stable condition. She tolerated the procedure well. Rafael Manriquez PA-C, was present for the entire procedure. He was critical for patient positioning, prepping, draping, retraction exposure, wound closure and application of sterile dressing. I attest to the content of the Intraoperative Record and any orders documented therein. Any exceptions are noted below.
--- NOTE | 2022-08-17 12:24 | XRay Report ---
XR knee LT 1 or 2V routine CLINICAL HISTORY: Surgical Post Op TECHNIQUE: 2 views of the left knee were obtained. Comparison: Comparison is made to knee radiographs 08/03/2022 FINDINGS: Patient is status post total knee arthroplasty with expected postsurgical changes including soft tiss ue swelling and subcutaneous emphysema. No periarticular lucency or hardware fracture is seen. IMPRESSION: No evidence of acute osseous injury. ACT 112: Negative or not required by law. Electronically signed by: Tuan Clay M.D. 08/17/2022 12:22 PM
--- NOTE | 2022-08-17 12:42 | Anesthesiology Progress Note ---
Date of Service August 17, 2022 Anesthesia Post Procedure Vital Signs Vital Signs: Temp Pulse Pulse Resp BP BP Pulse Ox 08/17/22 12:40 68 14 145/74 H 96 08/17/22 12:30 97.5 F L 68 18 123/70 94 08/17/22 12:20 64 14 141/68 H 95 08/17/22 12:10 77 17 134/65 96 08/17/22 12:00 97.9 F 67 13 137/73 94 08/17/22 08:32 98.2 F 69 18 160/93 H 97 O2 Del Method O2 Flow Rate 08/17/22 12:40 Nasal Cannula 2 08/17/22 12:30 Oxymask 2 08/17/22 12:20 Oxymask 4 08/17/22 12:10 Oxymask 6 08/17/22 12:00 Oxymask 6 08/17/22 08:32 Room Air Pain Intensity Left Knee: Pain Intensity: 5 Transfer of Care Handoff Completed per policy Notes Mental Status: alert / awake / arousable and participated in evaluation Patient Amnestic to Procedure: Yes Nausea / Vomiting: adequately controlled Pain: adequately controlled Airway Patency, RR, SpO2: stable & adequate BP & HR: stable & adequate Hydration State: stable & adequate Anesthetic Complications: no major complications apparent and Pt Satisfied with anesthetic care
[2022-08-17] MEDS ORDERED: METOCLOPRAMIDE HCL INJ 5 MG/ML 2 ML VIAL IV PRN (13:41)
[2022-08-17] MEDS ORDERED: HYDROmorphone INJ 0.5 MG/0.5 ML SYR IV PRN (13:41)
[2022-08-17] MEDS ORDERED: MAGNESIUM HYDROXIDE SUSP 30 ML UDC PO PRN (13:41)
[2022-08-17] MEDS ORDERED: bisacodyL 10 MG SUPP PR PRN (13:41)
[2022-08-17] MEDS ORDERED: NALOXONE HCL 0.4 MG/1 ML VIAL/CARP IV PRN (13:41)
[2022-08-17] MEDS: KETOROLAC TROMETHAMINE 15 MG/ML VIAL IV SCH ×3 (14:12→23:59)
[2022-08-17] MEDS: ACETAMINOPHEN 500 MG TAB PO SCH ×2 (15:20→21:19)
[2022-08-17] MEDS: SODIUM CHLORIDE 0.9% 1000ML 1,000 ML IV SCH (15:21)
[2022-08-17] MEDS: oxyCODONE HCL IR 5 MG TAB (IMMEDIATE RELEASE) PO PRN (16:52)
[2022-08-17] MEDS: ceFAZolin 2000MG 2,000 MG/15 ML SYR IV SCH (18:04)
[2022-08-17] MEDS ORDERED: ATORVASTATIN 20 MG TAB PO SCH (21:00)
[2022-08-17] MEDS ORDERED: SENNA 8.6 MG TAB PO SCH (21:00)
[2022-08-17] MEDS ORDERED: METOPROLOL SUCC 25MG EXT REL TAB PO SCH (21:00)
[2022-08-17] MEDS ORDERED: ESCITALOPRAM OXALATE 10 MG TAB PO SCH (21:00)
[2022-08-17] MEDS: ASPIRIN 81 MG ECTAB PO SCH (21:16)
[2022-08-17] MEDS: DOCUSATE SODIUM 100 MG CAP PO SCH (21:17)
[2022-08-18] MEDS: ceFAZolin 2000MG 2,000 MG/15 ML SYR IV SCH (01:25)
[2022-08-18] MEDS: SODIUM CHLORIDE 0.9% 1000ML 1,000 ML IV SCH (02:27)
[2022-08-18] MEDS: KETOROLAC TROMETHAMINE 15 MG/ML VIAL IV SCH ×2 (05:19→11:18)
[2022-08-18] MEDS: ACETAMINOPHEN 500 MG TAB PO SCH (05:20)
[2022-08-18] MEDS: oxyCODONE HCL IR 5 MG TAB (IMMEDIATE RELEASE) PO PRN ×2 (05:29→11:18)
[2022-08-18] MEDS ORDERED: LEVOTHYROXINE SODIUM 50 MCG TABLET PO SCH (06:30)
[2022-08-18] MEDS ORDERED: dexAMETHasone 4 MG TAB PO SCH (08:00)
[2022-08-18] MEDS ORDERED: APIXABAN 5 MG TABLET PO SCH (08:00)
[2022-08-18] MEDS: ASPIRIN 81 MG ECTAB PO SCH ×2 (08:57→09:03)
[2022-08-18] MEDS: DOCUSATE SODIUM 100 MG CAP PO SCH (08:57)
[2022-08-18] MEDS ORDERED: TRIAMTERENE/HCTZ 37.5/25MG TAB PO SCH (09:00)
[2022-08-18] MEDS ORDERED: MULTIVITAMIN TAB PO SCH (09:00)
--- NOTE | 2022-08-18 09:00 | Orthopedic Progress Note ---
Date of Service August 18, 2022 Assessment & Plan (1) Status post left knee replacement: Overall she is doing very well. She is not having much pain in the left knee. She will be seen by physical therapy today for ambulation and range of motion exercises. She is on Eliquis for DVT prophylaxis. The nursing staff can change her dressing after physical therapy today. She can be discharged home later today. She will follow-up with orthopedics in 2 weeks. Subjective Halie was seen and examined at bedside this morning. Overall she is doing very well. She is not having much pain in the left knee. She has been up and ambulating to the bathroom. She has no complaints.. Review of Systems All systems reviewed & are unremarkable except as noted in HPI & below. Physical Exam On physical examination of left knee, the dressing is clean and dry. Her leg is out full extension. She has active dorsiflexion plantarflexion of her left ankle.. Results & Data Results & Data Laboratory Results . Diagnostic Findings Postoperative x-rays of the left knee show the prosthesis to be in anatomic alignment without any evidence of fracture, dislocation, or loosening.. PG Care Time/CCT Total # of Minutes Spent Total Time Spent with Patient: Total time spent is greater than 50% in coordination of care (as documented) at patient's floor/unit and/or counseling patient: Coding Level of Care Code 85185 Post Operative Follow-Up Diagnoses Status post left knee replacement Z96.652
--- NOTE | 2022-08-18 09:01 | Discharge Summary ---
Date of Service August 18, 2022 Principal Diagnosis Same as "Discharge Diagnosis" noted below under Discharge Instructions. Discharge Exam On physical examination of left knee, the dressing is clean and dry. Her leg is out full extension. She has active dorsiflexion plantarflexion of her left ankle.. Discharge Data Procedures Performed Operation Date: 08/17/22 10:00 Actual Procedures p Left Total Knee Arthroplasty(Left) - Rafael Rodriguez DO Ordered Studies 08/17/22 10:10 US - OR guided needle placemen Routine Hospital Course (1) Status post left knee replacement: On August 17, 2022 Halie arrived at [facility] and underwent a left knee replaced without complication. Postoperatively she was started back on her Eliquis for DVT prophylaxis and transferred to the general orthopedic floors. Her hospital course was uneventful. On postop day #1, her vital signs were stable and her pain was well controlled. She was able to participate well with physical therapy doing ambulation and range of motion exercises. She was then discharged home. She will follow-up with orthopedics in 2 weeks. PG Care Time/CCT Total # of Minutes Spent Total Time Spent with Patient: Total time spent is greater than 50% in coordination of care (as documented) at patient's floor/unit and/or counseling patient: Discharge Plan Discharge Items Patient Disposition: Home - Home Health Services Reason For Visit: DJD Left Knee Discharge Diagnosis: Left knee replacement Activity: Per Instructions section Non-emergency contact: Surgeon Call non-emergency contact if: your wound has increased redness and your wound has increased drainage Follow-up/Referrals: Delia Ann MD [Primary Care Provider] - Diet: Regular Addtl Attending Provider Instructions: Activity and Therapy Recommendations: * If you are using [facility] then therapy will be provided at your home until they feel you have accomplished all of your goals. * If you are using [facility] then Physical Therapy will be provided until they feel you are ready to start Outpatient Physical Therapy. * If you are not using home therapy then Outpatient Physical Therapy should start about 3-5 days from your day of surgery. Therapy will last about 6-10 weeks * It is important not to put a pillow under your knee when you are relaxing or sleeping. It is just as important to make sure you are getting your knee perfectly straight as it is to regain your knee bend. * You were shown a series of exercises in the hospital. Do these exercises three times each day including the exercises you were shown in physical therapy. * Get up and walk several times each day. For the first four weeks, try not to stand or walk for more than one hour at a time. If you do stand or walk for more than one hour, you will not hurt anything, but your leg will likely swell. * As you feel comfortable, you may change from the walker or crutches to a cane and then to independent walking. Medications: * Narcotic You will likely be sent home from the hospital with a prescription for the narcotic pain medication that worked best throughout your stay. * Aspirin Most patients will be required to take Aspirin 81mg twice a day for 6 weeks after surgery. This is obtained [id number] and a prescription is not necessary. * Other medications may be prescribed for specific circumstances. If you have any questions, please call the office at . * Resume previous home medications unless otherwise instructed TEDs/Elastic Stockings: The white elastic stockings help limit swelling and prevent blood clots from forming in your legs.~ The more you wear them, the more they work. Wear them for six weeks. Dressing Care: The dressing can be changed after physical therapy on postop day #1. Daily dry dressing changes for a few days, especially if the incision is still draining some. If the incision is not draining then you may leave the brie open to air. If there is a little bit of drainage or if the brie are getting stuck on your clothing then cover the incision with a dry dressing. The brie will be removed at your 2 week follow-up appointment. Showering: You may shower 5 days from the day of surgery as long as the incision is no longer draining. You may shower with the brie exposed. Let soapy water run over the brie and pat them dry. Do not scrub or soak the incision. Things To Watch For: * Drainage from the incision site that occurs more than one week after your surgery. * Increased redness at the incision site. * Fever above 102 degrees Fahrenheit. * Unusual chest pain or shortness of breath. * Call [facility] at with any of the above problems Follow-Up Visit: Follow-up with Dr. Rodriguez's PA (Rafael Manriquez) 2-3 weeks after your day of surgery. He will remove your brie and answer any questions. If you have any additional questions or concerns, Dr Rodriguez is usually in the office at the same time and will be available An appointment was probably scheduled when you signed-up for surgery in the office. If you have any questions call Office Instructions: More detailed instructions as well as Frequently Asked Questions were provided in a folder by our office when you signed-up for surgery. Please review these instructions when you get home. If you have any further questions or concerns, please feel free to call the office at [phone] Pending Studies at Discharge: No Stand-Alone Forms: My [employer], Smoking Cessation Medications and DC Order Prescriptions: New oxycodone-acetaminophen 5-325 mg tablet 1 tab PO Q6H PRN (Reason: pain) Qty: 30 0RF Continued triamterene-hydrochlorothiazid 37.5-25 mg Tablet 0.5 tab PO QAM atorvastatin 20 mg tablet 20 mg PO HS levothyroxine 50 mcg tablet 50 mcg PO QAM metoprolol succinate 25 mg tablet extended release 24 hr 25 mg PO HS escitalopram oxalate 10 mg tablet 10 mg PO HS Eliquis 5 mg tablet 5 mg PO Q12H Qty: 60 0RF Admission Data Admit Date/Time: 08/17/22 12:02 Attending Provider: Rafael Rodriguez Admit Provider: Rafael Rodriguez Primary Care Provider: Delia Ann
== END 2022-08-18 12:15 | disposition home health service (06) ==
LOC: ASU 07:57 → 3N 07:57

== ENCOUNTER 2024-02-14 09:01 | Observation (INO) ==
--- NOTE | 2024-01-14 15:43 | PAT Medication Instructions ---
Medication Instructions Date of Service January 14, 2024 Home Medications Medication Instructions Recorded apixaban 5 mg tablet (Eliquis) 5 mg PO Q12H #60 tabs 03/12/22 triamterene 37.5 mg-hydrochlorothiazide 25 mg tablet 0.5 tab PO QAM atorvastatin 20 mg tablet 20 mg PO HS escitalopram oxalate 10 mg tablet 10 mg PO HS levothyroxine 50 mcg tablet 50 mcg PO QAM metoprolol succinate 25 mg tablet,extended release 24 hr 25 mg PO HS apixaban 5 mg tablet (Eliquis) 5 mg PO Q12H ASK your prescriber and surgeon apixaban 5 mg tablet (Eliquis) 5 mg PO Q12H (From anesthesia perspective, Apixaban/Eliquis needs to be stopped 72 hours/3 days before surgery. Please check if okay with doctor that prescribes this to you) DO NOT take the morning of surgery triamterene 37.5 mg-hydrochlorothiazide 25 mg tablet 0.5 tab PO QAM Take morning of surgery With a small sip of water, OTHERWISE NOTHING TO EAT OR DRINK AFTER MIDNIGHT: levothyroxine 50 mcg tablet 50 mcg PO QAM Take evening before surgery atorvastatin 20 mg tablet 20 mg PO HS escitalopram oxalate 10 mg tablet 10 mg PO HS metoprolol succinate 25 mg tablet,extended release 24 hr 25 mg PO HS Other Notes If you have any questions please call us at [phone] or [phone] or [phone] or [phone]
--- NOTE | 2024-01-20 13:54 | Anesthesiology Consultation ---
Date of Service January 20, 2024 Assessment & Plan (1) Encounter for pre-operative examination: - Infectious disease screening: Per assessment on 01/20/24- No known recent infectious disease contacts in past 10 days. Patient states increased sinus drainage starting 1 week ago. Denies other infectious-related symptoms including cough/SOB/Fever/chills/N/V. Patient declined Covid testing at PAT visit. DOS not until 02/14/24. Patient advised to monitor symptoms and contact surgeon/PAT if symptoms not at baseline prior to surgery- okay to proceed without further preop Covid testing and/or precautions if at baseline prior to surgery. - Outpatient joint assessment: Pt currently scheduled for inpatient pathway. If surgeon requests review for outpatient joint pathway, patient is not recommended candidate for outpatient joint program from anesthesia standpoint based on available information. - Eliquis instructions: patient made aware that for neuraxial anesthesia, Eliquis needs to be held 72 hours prior to surgery. Patient voiced understanding/will check if okay with prescriber. - Previous anesthesia hx: * Right GILA, anterior (04/17/22): Multiple attempts at multiple levels for SAB unsuccessful > GA- Grade view 1, MAC#3, ETT 7.0 at [facility] * Left TKA (08/17/22): Per anesthesia consult, "patient prefers GA d/t difficulty with spinal in past" "#4 leaking" > LMA#5 (unique) + regional at [facility] * Patient indicates at PAT visit 01/20/24 that she again would prefer GA for upcoming surgery given previous difficulty with unsuccessful spinal attempts in the past. - Cardiology visit (03/13/23): "Chronic atrial fibrillation.. asymptomatic, heart rate controlled.. blood pressure slightly elevated, recommend to monitor blood pressure at home and contact office with readings in 1 week.. Dyslipidemia.. controlled.." Continued on same regimen. F/U 6 months recommended but due to scheduling conflicts, routine cardio f/u rescheduled to 03/13/2024 (after upcoming surgery). Patient states at PAT visit 01/20/24, she is feeling well/stable since last cardio visit not with new/acute cardiopulmonary complaints. BP 111/74 at PAT visit. Case reviewed with Dr. Ramos- he feels that patient does not need to have cardiology evaluation prior to surgery from his perspective. - PCP visit (11/15/23): "Hypothyroidism Clinically euthyroid - TSH is elevated - suspect she is taking incorrectly, reviewed proper administration.. cont levothyroxine at current dose, recheck in 2 mo.. Well controlled, cont BB, triamterene HCTZ 18.75-12.5 mg daily.. Prediabetes stable.. Cont to monitor dietary intake.. Update A1C annually.. Afib Stable, asymptomatic.. Follows with cardiology.. Cont eliquis, metoprolol succinate.. Follow-up: Return in about 6 months" > TSH/Free T4 WNL on preop labs done 01/20/24. Chart Review Chart Review: Acceptable Risk for Surgery (pending evaluation DOS) and Patient seen in Pre Admission Testing Teaching & Discussion Pre-Anesthesia Teaching/Discussion Notes: Instructed NPO after midnight before surgery,except medications with 15 cc of water. Medication instructions provided according to the PAT guidelines. History Surgery Operation Date: 02/14/24 08:00 Proposed Procedures p Right Total Knee Arthroplasty - Rafael Rodriguez, Height/Weight Height: 5 ft 5 in Weight: 83.2 kg Allergies Allergy/AdvReac Type Severity Reaction Status Date / Time prednisone Allergy Intermediate Nervous, Verified 01/13/24 15:18 rapid heart rate Medications Home Medications Medication Instructions Recorded Confirmed Last Taken triamterene 37.5 0.5 tab PO QAM 11/11/19 01/13/24 08/16/22 11:00 mg-hydrochlorothiazide 25 mg tablet atorvastatin 20 mg tablet 20 mg PO HS 03/08/22 01/13/24 08/16/22 23:00 escitalopram oxalate 10 mg tablet 10 mg PO HS 03/08/22 01/13/24 08/16/22 23:00 levothyroxine 50 mcg tablet 50 mcg PO QAM 03/08/22 01/13/24 08/16/22 11:00 metoprolol succinate 25 mg 25 mg PO HS 03/08/22 01/13/24 08/16/22 23:00 tablet,extended release 24 hr apixaban 5 mg tablet (Eliquis) 5 mg PO Q12H #60 tabs 03/12/22 01/13/24 08/13/22 23:00 Past Medical History Medical History Acid reflux Atrial fibrillation Dx 02/2022 Follows with [facility] Cardiology>reason for eliquis Chronic kidney disease Per records, pt denies Dyslipidemia Hx borderline History of anxiety History of cellulitis Right hip incision s/p right hip arthroplasty (April 2022) > resolved s/p antibiotics History of seizures Remote hx, none since 1966 Hx of rosacea Hypertension Hypothyroidism IBS (irritable bowel syndrome) Osteoarthritis Prediabetes Per [facility] PCP records HGBA1C 6.0% 01/20/24 Urge incontinence Exercise / Class Metabolic Activity III < 4 Walking/Shop/Light housework Past Family History Family History Other No family history of adverse response to anesthesia Past Surgical History Surgical History History of colonoscopy History of tonsillectomy and adenoidectomy History of tooth extraction History of total knee replacement (07/2022) Left TKA (08/17/22): Per anesthesia consult, "patient prefers GA d/t difficulty with spinal in past" "#4 leaking" > LMA#5 (unique) + regional at [facility] History of tubal ligation Hx of cataract extraction R/L S/P total right hip arthroplasty Right GILA, anterior (04/17/22): Multiple attempts at multiple levels for SAB unsuccessful > GA- Grade view 1, MAC#3, ETT 7.0 at [facility] Past Anesthesia History No Family Hx of Anesthesia Complications and Other * Right GILA, anterior (04/17/22): Multiple attempts at multiple levels for SAB unsuccessful > GA- Grade view 1, MAC#3, ETT 7.0 at [facility] * Left TKA (08/17/22): Per anesthesia consult, "patient prefers GA d/t difficulty with spinal in past" "#4 leaking" > LMA#5 (unique) + regional at [facility] History of PONV No Hx of PONV and No Hx of Motion Sickness Social History Smoking Status: Former smoker tobacco type: cigarettes Do You Dip or Chew Tobacco: No Smoking End Date: Quit 50+ years ago Hx Alcohol Use: No Hx Substance Use: No substance use type: does not use Review of Systems Patient denies chest pain, shortness of breath, fever, chills, cough, wheezing, palpitations. Physical Exam Vital Signs BP 111/74 P 65 TEMP 98.3 SP02 97%RA RESP 16 Physical Full cervical extension range of motion. Full TMJ range of motion. TMD > 3.5 finger breaths Mallampati Score I Dentition: upper/lower full dentures Lungs: clear throughout to auscultation Cardiac: regular rate, irregularly irregular rhythm, no murmurs noted Spine: normal Carotid arteries: negative bruit Extremities: no LE edema Lab Results Anesthesia Preop Results Results Anesthesia Widget: WBC 7.62 K/ul (4.8-10.8) 01/20/24 Hgb 12.2 g/dl (12.0-16.0) 01/20/24 Hct 38.4 % (37.0-47.0) 01/20/24 Plt 274 K/uL (130-400) 01/20/24 Na 140 mmol/L (136-145) 01/20/24 K 4.2 mmol/L (3.5-5.1) 01/20/24 Cl 102 mmol/L (98-107) 01/20/24 CO2 31 mmol/L (21-32) 01/20/24 BUN 11 mg/dl (6-23) 01/20/24 Creat 0.83 mg/dl (0.6-1.2) 01/20/24 Glucose Level 107 mg/dl (70-99(Fasting)) H 01/20/24 PT 11.4 Seconds (9.0-12.0) 01/20/24 PTT 26 Seconds (21-31) 01/20/24 INR 1.1 (0.9-1.1) 01/20/24 TSH 0.673 uIu/ml (0.300-4.500) 01/20/24 Free T4 1.18 ng/dl (0.61-1.60) 01/20/24 HA1c 6.0 % (4.5-5.6) H 01/20/24 Blood Type O Positive 01/20/24 Antibody Screen NEGATIVE 01/20/24 Testing Electrocardiogram Date: 01/20/24 A. fib at 66bpm. NS STA. Chest X-Ray Date: 01/20/24 FINDINGS: Lung volumes are normal. Lungs are clear. There is no pneumothorax or pleural effusion. Mild cardiomegaly is unchanged. Mediastinal contours are normal. There is no evidence for pulmonary edema. IMPRESSION: No acute cardiopulmonary findings. Echocardiogram Date: 03/15/22 LVEF 55-59%. Mildly increased cLV wall thickness. Mild AV calcification. Mild MV annulus dilation. Moderate MR. No RWMA.
--- NOTE | 2024-02-13 07:44 | History & Physical Report ---
Date of Service February 13, 2024 Assessment & Plan (1) Osteoarthritis of right knee: We will proceed with a right total knee arthroplasty. Postoperatively she will be started on Eliquis for DVT prophylaxis and kept overnight in the hospital for postop medical management. [facility] plans [facility]. History of Present Illness Chief Complaint: Osteoarthritis of the right knee. Primary Care Provider: Delia Ann MD Halie is a pleasant 83-year-old female who I did a left knee replacement on in the past. She has done very well with that. Unfortunately, she is now dealing with right knee pain. A recent x-ray and clinical examination have been diagnostic for advanced arthritis to the right knee. After failing conservative treatment, she has elected to proceed with a right 20 arthroplasty. Allergies Allergy/AdvReac Type Severity Reaction Status Date / Time prednisone Allergy Intermediate Nervous, Verified 01/13/24 15:18 rapid heart rate Home Medications Medication Instructions Recorded Confirmed Type triamterene 37.5 0.5 tab PO QAM 11/11/19 01/13/24 History mg-hydrochlorothiazide 25 mg tablet atorvastatin 20 mg tablet 20 mg PO HS 03/08/22 01/13/24 History escitalopram oxalate 10 mg tablet 10 mg PO HS 03/08/22 01/13/24 History levothyroxine 50 mcg tablet 50 mcg PO QAM 03/08/22 01/13/24 History metoprolol succinate 25 mg 25 mg PO HS 03/08/22 01/13/24 History tablet,extended release 24 hr apixaban 5 mg tablet (Eliquis) 5 mg PO Q12H #60 tabs 03/12/22 01/13/24 Rx Past Med/Surg History Problem List Encounter for pre-operative examination Myofascial pain Medical History Prediabetes Per [facility] PCP records HGBA1C 6.0% 01/20/24 History of anxiety Hx of rosacea History of cellulitis Right hip incision s/p right hip arthroplasty (April 2022) > resolved s/p antibiotics Atrial fibrillation Dx 02/2022 Follows with [facility] Cardiology>reason for eliquis Osteoarthritis History of seizures Remote hx, none since 1966 Acid reflux Urge incontinence Chronic kidney disease Per records, pt denies IBS (irritable bowel syndrome) Hypertension Hypothyroidism Dyslipidemia Hx borderline Surgical History History of tonsillectomy and adenoidectomy History of tooth extraction History of total knee replacement (07/2022) Left TKA (08/17/22): Per anesthesia consult, "patient prefers GA d/t difficulty with spinal in past" "#4 leaking" > LMA#5 (unique) + regional at [facility] S/P total right hip arthroplasty Right GILA, anterior (04/17/22): Multiple attempts at multiple levels for SAB unsuccessful > GA- Grade view 1, MAC#3, ETT 7.0 at [facility] Hx of cataract extraction R/L History of colonoscopy History of tubal ligation Family History Other No family history of adverse response to anesthesia Social History Smoking Status: Former smoker Smoking End Date: Quit 50+ years ago; Second Hand Exposure: Yes (at work); Do You Dip or Chew Tobacco: No; Hx Alcohol Use: No Hx Substance Use: No Preferred Language: Greenlandic Communication Ability: Effective Visual Impairment: Limited Hearing Ability: Normal Mixer Blender Required: No Beliefs That Will Affect Care: None marital status: Current Living Situation: Family Current Living Situation Comment: family lives with patient currently they are building a new home current occupational status: retired Feels Safe at Home: Yes Safety Concerns: Feels Safe At This Time Assistive Devices: Cane, Denture - Upper, Denture - Lower and Glasses Review of Systems All systems reviewed & are unremarkable except as noted in HPI & below. Physical Exam On physical exam of the right knee, she has range of motion 0 to 120 degrees. Pain of the distal femoral condyles. She has some pain along the medial joint line.. Constitutional WD/WN, vitals as above Eyes PERRL, conjunctivae normal, anicteric sclerae ENMT external ear and nose normal, oropharynx normal Neck trachea midline, no thyromegaly Respiratory normal respiratory effort Cardiovascular RRR, no murmur, no edema Gastrointestinal (Abdomen) normal bowel sounds, soft, nontender, no hepatosplenomegaly Psychiatric A+Ox3, euthymic affect Results & Data Results & Data Laboratory Results . Diagnostic Findings X-rays of the right knee show moderate osteoarthritis with some joint space narrowing and osteophyte formation.. PG Care Time/CCT Total # of Minutes Spent Total Time Spent with Patient: Total time spent is greater than 50% in coordination of care (as documented) at patient's floor/unit and/or counseling patient: Coding Level of Care Code None Diagnoses Osteoarthritis of right knee M17.11
[~2024-02-14 09:01] MED LIST changes: -ACETAMINOPHEN 500 MG TAB PO SCH; +EPINEPHrine INJ 1 MG/ML AMP ONE; -FAMOTIDINE 20 MG TAB PO SCH; -GABAPENTIN 300 MG CAP PO SCH; -Ketorolac (*for OR use only*) 30 MG, dexAMETHasone 4 MG, KETAMINE HCL (**OR use only) 1... INFIL SCH; -LR 500ML BOLUS, THEN 15ML/HR IV SCH; -LR 60ML/HR IV SCH; -TRANEXAMIC ACID 1,000 MG **IV Intra-op IV SCH; -TRANEXAMIC ACID 1,000 MG **IV Pre-op IV SCH; -ceFAZolin 2000MG 2,000 MG/15 ML SYR IV SCH; -dexAMETHasone 4 MG TAB PO SCH
[2024-02-14] MEDS: ACETAMINOPHEN 500 MG TAB PO SCH ×2 (09:49→15:18)
[2024-02-14] MEDS ORDERED: MIDAZOLAM HCL 1 MG/ML 2ML VIAL ONE (09:49)
[2024-02-14] MEDS ORDERED: fentaNYL citrate PF 100 MCG/2 ML VIAL ONE (09:49)
[2024-02-14] MEDS: GABAPENTIN 300 MG CAP PO SCH (09:50)
[2024-02-14] MEDS: FAMOTIDINE 20 MG TAB PO SCH (09:50)
[2024-02-14] MEDS: LR 60ML/HR IV SCH (09:50)
[2024-02-14] MEDS: LACTATED RINGER'S 1,000 ML IV SCH (09:51)
[2024-02-14] MEDS ORDERED: LIDOCAINE 2% 2 ML VIAL/AMP(20MG/ML) INFIL ONE (09:53)
[2024-02-14] MEDS ORDERED: PROPOFOL IV EMULSION 10 MG/ML 20 ML VIAL IV ONE (09:53)
--- NOTE | 2024-02-14 10:09 | History & Physical Bridge Note ---
Date of Service February 14, 2024 History & Physical Bridge Note I have examined the patient, reviewed the History & Physical and in the interval since the performance of the History & Physical I have noted the following changes of clinical significance: no changes noted
[2024-02-14] MEDS: dexAMETHasone**PF** 10 MG/ML VIAL IV SCH (10:15)
[2024-02-14] MEDS ORDERED: ePHEDrine sulfate 50 MG/ML AMP IV PRN (10:36)
[2024-02-14] MEDS ORDERED: fentaNYL citrate PF 100 MCG/2 ML VIAL IV PRN (10:36)
[2024-02-14] MEDS ORDERED: HYDROmorphone INJ 1 MG/ML SYRINGE IV PRN (10:36)
[2024-02-14] MEDS ORDERED: NALOXONE HCL 0.4 MG/1 ML VIAL/CARP IV PRN ×2 (10:36→15:05)
[2024-02-14] MEDS ORDERED: ATROPINE SULFATE 0.1 MG/ML 10ML SYR IV PRN (10:36)
[2024-02-14] MEDS ORDERED: ONDANSETRON INJ 2 MG/ML 2 ML VIAL IV PRN ×2 (10:36→15:05)
[2024-02-14] MEDS ORDERED: PROMETHAZINE HCL 6.25 MG in SODIUM CHLORIDE 0.9% 50 ML IV PRN (10:36)
[2024-02-14] MEDS ORDERED: FLUMAZENIL 0.1 MG/1 ML 10 ML VIAL IV PRN (10:36)
[2024-02-14] MEDS: TRANEXAMIC ACID 1,000 MG **IV Pre-op IV SCH (10:43)
[2024-02-14] MEDS: ceFAZolin 2000MG 2,000 MG/15 ML SYR IV SCH (11:10)
[2024-02-14] MEDS: ORTHO JOINT ANESTHETIC ONE (12:41)
[2024-02-14] MEDS: TRANEXAMIC ACID 1,000 MG **IV Intra-op IV SCH (12:41)
[2024-02-14] MEDS: ROPIV 0.5% 246mg, Ketorolac 30mg, EPINEPHrine 0.5mg in NSS INFIL SCH (12:41)
--- NOTE | 2024-02-14 13:02 | Operative Report ---
PG Post Operative Report Pre & Post Diagnosis Operation Date: 02/14/24 12:00 Pre-Op Diagnosis: Right Knee Arthritis Post-Op Diagnosis: Right Knee Arthritis I identified the patient and participated in the time-out.: Yes Procedure Operation Date: 02/14/24 12:00 Actual Procedures p Right Total Knee Arthroplasty(Right) - Rafael Rodriguez DO Surgeon Rafael Rodriguez DO Segmental Paving Supervisor Jose Villaseñor PA-C Estimated Blood Loss 30 Findings Consistent with Post-Op Diagnosis Specimens Right femoral and tibial bone Description of Procedure Implants used: I used a Jenifer Persona total knee arthroplasty system with a size 7 standard PS femur, D tibia, 31 oval patella, and a size 12 CPS polyethylene bearing. All components were cemented in place with Biomet cement. Halie arrived [facility] for the above procedure. She was seen in the preoperative holding area and the operative extremity was identified and signed. She was given a preoperative antibiotic, TXA, a spinal anesthetic and an adductor nerve block. She was taken back to the operating room and laid on the table in supine position. She was given basic sedation. The operative knee was then prepped and draped in sterile fashion. A timeout was done, and the patient and the operative extremity was properly identified. A midline incision was made directly over the patella. Dissection was taken down to the extensor mechanism. A midvastus arthrotomy was used. The medial retinaculum was released and the fat pad was mostly excised. The knee was flexed and the ACL, PCL, and meniscus were removed. A drill was sent down the center of the femoral canal followed by an intramedullary yamini. Off that yamini a distal femoral cutting block was placed. 9 mm was resected off the distal femur at 5 of valgus. A posterior referencing AP sizing guide was then placed on the distal femur. The femur measured to be a size 7. 2 drill holes were placed in 3 of external rotation. A 4-in-1 cutting block was then impacted into place. Anterior, posterior, and chamfer cuts were then made. The proximal tibia was then exposed. An external tibial alignment guide was placed. A tibial cut guide was then anchored in place and the proximal tibia was then resected. The posterior aspect of the knee was then opened up and any additional meniscus fragments and osteophytes were removed. The tibia measured to be a size D. The tibial plate was then placed in the appropriate rotation and the tibia was drilled and punched. Trial components were then placed. I used a size 12 CPS polyethylene insert. The knee was brought through a full range of motion and felt to be stable. The peg holes for the femoral component were then drilled. The patella was then everted and 9 mm was resected off the posterior aspect of the patella. The patella measured to be a size 31 oval. 3 peg holes were then drilled. A trial patella was placed. The knee was once again brought through a full range of motion and felt to be stable. Trial components were then removed. The surrounding soft tissues were injected with 100 cc of an orthopedic pain control cocktail. All components were then cemented into place with Biomet cement. The final polyethylene insert was then snapped into place. Once cement was dry the tourniquet was deflated. Hemostasis was obtained. A dilute betadyne lavage was then done for 3 minutes. The joint was then irrigated with normal saline solution. The midvastus arthrotomy was then closed with #1 Vicryl suture. The skin was closed with 2-0 Vicryl, 3-0V lock suture, and brie. A soft compressive dressing was placed. She was then transferred to a hospital bed and taken to the postanesthesia care unit in stable condition. She tolerated the procedure well. Jose Villaseñor PA-C, was present for the entire procedure. He was critical for patient positioning, prepping, draping, retraction exposure, wound closure and application of sterile dressing. I attest to the content of the Intraoperative Record and any orders documented therein. Any exceptions are noted below.
--- NOTE | 2024-02-14 13:45 | Anesthesiology Progress Note ---
Date of Service February 14, 2024 Anesthesia Post Procedure Vital Signs Vital Signs: Temp Pulse Pulse Resp BP Pulse Ox O2 Del Method 02/14/24 13:25 73 12 145/63 H 98 Nasal Cannula 02/14/24 13:15 79 15 140/76 93 Nasal Cannula 02/14/24 13:05 73 19 153/75 H 100 Oxymask 02/14/24 12:55 87 16 165/81 H 98 Oxymask 02/14/24 12:45 36.6 C 74 16 161/94 H 95 Oxymask 02/14/24 09:20 36.8 C 67 20 166/83 H 99 Room Air O2 Flow Rate 02/14/24 13:25 2 02/14/24 13:15 3 02/14/24 13:05 4 02/14/24 12:55 6 02/14/24 12:45 8 02/14/24 09:20 Transfer of Care Handoff Completed per policy Notes Mental Status: alert / awake / arousable Patient Amnestic to Procedure: Yes Nausea / Vomiting: adequately controlled Pain: adequately controlled Airway Patency, RR, SpO2: stable & adequate BP & HR: stable & adequate Hydration State: stable & adequate Anesthetic Complications: no major complications apparent
[2024-02-14] MEDS ORDERED: METOCLOPRAMIDE HCL INJ 5 MG/ML 2 ML VIAL IV PRN (15:05)
[2024-02-14] MEDS ORDERED: traMADol HCL 50 MG TABLET PO PRN (15:05)
[2024-02-14] MEDS ORDERED: MAGNESIUM HYDROXIDE SUSP 30 ML UDC PO PRN (15:05)
[2024-02-14] MEDS ORDERED: bisacodyL 10 MG SUPP PR PRN (15:05)
[2024-02-14] MEDS ORDERED: HYDROmorphone INJ 0.5 MG/0.5 ML SYR IV PRN (15:05)
--- NOTE | 2024-02-14 15:22 | XRay Report ---
XR knee RT 1 or 2V routine HISTORY: 83 years-old Female Surgical Post Op right knee arthroplasty COMPARISON: 11/13/2023 TECHNIQUE: 2 views of the right knee FINDINGS: Total joint arthroplasty and patellar resurfacing. Arterial calcifications. Anterior midline skin sta ples are present along with expected postoperative soft tissue swelling and deep tissue air. IMPRESSION: Total joint arthroplasty with expected postoperative changes. ACT 112: Negative or not required by law. The above report was generated using voice recognition software. It may contain grammatical, syntax o r spelling errors. Electronically signed by: Chinedu Brown M.D. 02/14/2024 3:21 PM
[2024-02-14] MEDS: ceFAZolin 1000MG 1,000 MG/7.5 ML SYR IV SCH (18:15)
[2024-02-14] MEDS: ATORVASTATIN 20 MG TAB PO SCH (20:47)
[2024-02-14] MEDS: ESCITALOPRAM OXALATE 10 MG TAB PO SCH (20:47)
[2024-02-14] MEDS: DOCUSATE SODIUM 100 MG CAP PO SCH (20:47)
[2024-02-14] MEDS: METOPROLOL SUCC 25MG EXT REL TAB PO SCH (20:47)
[2024-02-14] MEDS: SENNA 8.6 MG TAB PO SCH (20:47)
[2024-02-14] MEDS: APIXABAN 5 MG TABLET PO SCH (20:48)
[2024-02-15] MEDS: LEVOTHYROXINE SODIUM 50 MCG TABLET PO SCH (05:59)
[2024-02-15 07:17] VITALS: BP 112/72; RESP 18; TEMP 97.9; O2SAT 93
[2024-02-15] MEDS: TRIAMTERENE/HCTZ 37.5/25MG TAB PO SCH (08:13)
[2024-02-15] MEDS: MULTIVITAMIN TAB PO SCH (08:14)
[2024-02-15] MEDS: oxyCODONE HCL IR 5 MG TAB (IMMEDIATE RELEASE) PO PRN (08:18)
--- NOTE | 2024-02-15 08:25 | Orthopedic Progress Note ---
Date of Service February 15, 2024 Assessment & Plan (1) Status post right knee replacement: Overall she is doing very well. She is not having much pain in the right knee. She will be seen by physical therapy today for ambulation and range of motion exercises. She is on Eliquis for DVT prophylaxis. She can be discharged home later today. She will follow-up orthopedics in 2 weeks. Subjective Halie was seen and examined at bedside this morning. Overall she is doing very well. She is not having much pain in the right knee. She has been up and ambulating to the bathroom. She has no complaints.. Review of Systems All systems reviewed & are unremarkable except as noted in HPI & below. Physical Exam On physical exam of the right knee, the dressing is clean and dry. Her leg is out full extension. She has active dorsiflexion and plantarflexion of her right ankle.. Results & Data Results & Data Laboratory Results . Diagnostic Findings Postoperative x-rays of the right knee show the prosthesis to be in anatomic alignment without any evidence of fracture complication, or loosening.. PG Care Time/CCT Total # of Minutes Spent Total Time Spent with Patient: Total time spent is greater than 50% in coordination of care (as documented) at patient's floor/unit and/or counseling patient: Coding Level of Care Code 83908 Post Operative Follow-Up Diagnoses Status post right knee replacement Z96.651
--- NOTE | 2024-02-15 08:25 | Discharge Summary ---
Date of Service February 15, 2024 Admission HPI (Per Admitting) Halie is a pleasant 83-year-old female who I did a left knee replacement on in the past. She has done very well with that. Unfortunately, she is now dealing with right knee pain. A recent x-ray and clinical examination have been diagnostic for advanced arthritis to the right knee. After failing conservative treatment, she has elected to proceed with a right 20 arthroplasty. Admission Exam (Per Admitting) On physical exam of the right knee, she has range of motion 0 to 120 degrees. Pain of the distal femoral condyles. She has some pain along the medial joint line.. Principal Diagnosis Same as "Discharge Diagnosis" noted below under Discharge Instructions. Discharge Exam On physical exam of the right knee, the dressing is clean and dry. Her leg is out full extension. She has active dorsiflexion and plantarflexion of her right ankle.. Discharge Data Procedures Performed Operation Date: 02/14/24 12:00 Actual Procedures p Right Total Knee Arthroplasty(Right) - Rafael Rodriguez DO Ordered Studies 02/14/24 05:00 US - OR guided needle placemen Routine Hospital Course (1) Status post right knee replacement: On February 14, 2024 Halie arrived at [facility] and underwent a right knee replacement without complication. She had a spinal anesthetic. Postoperatively she was started on Eliquis for DVT prophylaxis and transferred to the general orthopedic floors. Her hospital course was uneventful. On postop day #1, her vital signs were stable and her pain was well-controlled. She was able to participate well with physical therapy doing ambulation and range of motion exercises. She was then discharged to home. She will follow-up with orthopedics in 2 weeks. PG Care Time/CCT Total # of Minutes Spent Total Time Spent with Patient: Total time spent is greater than 50% in coordination of care (as documented) at patient's floor/unit and/or counseling patient: Discharge Plan Discharge Items Patient Disposition: Home - Self-Care Reason For Visit: Right Knee Arthritis Discharge Diagnosis: Right knee replacement Activity: Per Instructions section Non-emergency contact: Surgeon Call non-emergency contact if: your wound has increased redness and your wound has increased drainage Follow-up/Referrals: Delia Ann MD [Primary Care Provider] - Diet: Regular Addtl Attending Provider Instructions: Activity and Therapy Recommendations: * If you are using [facility] then therapy will be provided at your home until they feel you have accomplished all of your goals. * If you are using [facility] then Physical Therapy will be provided until they feel you are ready to start Outpatient Physical Therapy. * If you are not using home therapy then Outpatient Physical Therapy should start about 3-5 days from your day of surgery. Therapy will last about 6-10 weeks * It is important not to put a pillow under your knee when you are relaxing or sleeping. It is just as important to make sure you are getting your knee perfectly straight as it is to regain your knee bend. * You were shown a series of exercises in the hospital. Do these exercises three times each day including the exercises you were shown in physical therapy. * Get up and walk several times each day. For the first four weeks, try not to stand or walk for more than one hour at a time. If you do stand or walk for more than one hour, you will not hurt anything, but your leg will likely swell. * As you feel comfortable, you may change from the walker or crutches to a cane and then to independent walking. Medications: * Narcotic You will likely be sent home from the hospital with a prescription for the narcotic pain medication that worked best throughout your stay. * Cefadroxil -take the antibiotic twice a day for 10 days to help prevent infection. * Continue your Eliquis as prescribed. * Other medications may be prescribed for specific circumstances. If you have any questions, please call the office at . * Resume previous home medications unless otherwise instructed TEDs/Elastic Stockings: The white elastic stockings help limit swelling and prevent blood clots from forming in your legs.~ The more you wear them, the more they work. Wear them for six weeks. Dressing Care: The dressing can be changed after physical therapy on postop day #1. Daily dry dressing changes for a few days, especially if the incision is still draining some. If the incision is not draining then you may leave the brie open to air. If there is a little bit of drainage or if the brie are getting stuck on your clothing then cover the incision with a dry dressing. The brie will be removed at your 2 week follow-up appointment. Showering: You may shower 5 days from the day of surgery as long as the incision is no longer draining. You may shower with the brie exposed. Let soapy water run over the brie and pat them dry. Do not scrub or soak the incision. Diet: You may resume your previous diet. Things To Watch For: * Drainage from the incision site that occurs more than one week after your surgery. * Increased redness at the incision site. * Fever above 102 degrees Fahrenheit. * Unusual chest pain or shortness of breath. * Call [facility] at with any of the above problems Follow-Up Visit: Follow-up with Dr. Rodriguez's office 2-3 weeks after your day of surgery. We will remove your brie and answer any questions. If you have any additional questions or concerns, Dr Rodriguez is usually in the office at the same time and will be available An appointment was probably scheduled when you signed-up for surgery in the office. If you have any questions call Office Instructions: More detailed instructions as well as Frequently Asked Questions were provided in a folder by our office when you signed-up for surgery. Please review these instructions when you get home. If you have any further questions or concerns, please feel free to call the office at [phone] Pending Studies at Discharge: No Stand-Alone Forms: [facility] Medications and DC Order Prescriptions: New oxycodone 5 mg tablet 5 mg PO Q6H PRN (Reason: pain) Qty: 30 0RF cefadroxil 500 mg capsule 500 mg PO BID 10 Days Qty: 20 0RF Continued triamterene-hydrochlorothiazid 37.5-25 mg Tablet 0.5 tab PO QAM atorvastatin 20 mg tablet 20 mg PO HS levothyroxine 50 mcg tablet 50 mcg PO QAM metoprolol succinate 25 mg tablet extended release 24 hr 25 mg PO HS escitalopram oxalate 10 mg tablet 10 mg PO HS Eliquis 5 mg tablet 5 mg PO Q12H Qty: 60 0RF Discharge Orders: Discharge Order (Routine); Ordered 02/15/24 Ordered By: Rafael Rodriguez Admission Data Admit Date/Time: 02/14/24 12:00 Attending Provider: Rafael Rodriguez Admit Provider: Rafael Rodriguez Primary Care Provider: Delia Ann
[2024-02-15 10:09] VITALS: PULSE 73
== END 2024-02-15 11:26 | disposition home or self-care (01) ==
LOC: ASU 09:01 → 3E 09:01